=== PATIENT | male | born 2000 | race Caucasian/White ===

== ENCOUNTER 2023-07-22 14:10 | Emergency (ER) | payer BC, SELFPAY ==
[2023-07-22 14:11] VITALS: BP 136/82; PULSE 98; RESP 100; TEMP 35.7; O2SAT 100
[2023-07-22 14:35] LABS: Basophils Percent Auto 0.3 % (0.2-1.2); Eosinophils Absolute Auto 0.1 K/mm3 (0-0.3); Eosinophils Percent Auto 0.9 % (0-4.4); Hematocrit 47.1 % (42.0-52.0); Hemoglobin 15.6 g/dL (14.0-18.0); Immature Granulocyte Absolute 0.04 K/mm3 (0.00-0.031); Immature Granulocyte Percent A 0.4 % (0-0.5); Lymphocytes Percent Auto 27.1 % (18.3-44.2); Mean Corpuscular HGB Conc 33.1 g/dl (32-36); Mean Corpuscular Hemoglobin 30.2 pg (26-34); Mean Corpuscular Volume 91.1 fl (80-100); Mean Platelet Volume 11.2 fl (7.4-10.4); Monocytes Absolute Auto 0.9 K/mm3 (0.1-0.6); Monocytes Percent Auto 8.6 % (2.6-8.5); Neutrophils Absolute Auto 6.7 K/mm3 (1.3-6.7); Neutrophils Percent Auto 62.7 % (45.5-73.1); Platelet Count Result 212 k/mm3 (150-375); Red Blood Count 5.17 M/mm3 (4.6-6.20); Red Cell Distribution Width 12.4 % (11.5-14.5); White Blood Count 10.7 K/mm3 (4.5-10.0)
[2023-07-22 14:45] LABS: Alanine Aminotransferase 87 U/L (6-50); Alkaline Phosphatase 81 U/L (38-126); Anion Gap 15 mmol/L (8-16); Aspartate Amino Transferase 42 U/L (17-59); Bilirubin,Total 0.9 mg/dL (0.2-1.3); Blood Urea Nitrogen 15 mg/dL (9-20); Carbon Dioxide 23 mmol/L (22-30); Chloride 101 mmol/L (98-107); Estimated CRCL calculation 168 ml/min; Estimated Glomerular Filt Rate > 60; Glucose 100 mg/dL (65-110); Potassium 3.8 mmol/L (3.4-5.0); Sodium 139 mmol/L (137-145)
[2023-07-22 14:53] LABS: Prothrombin Time 13.6 Seconds (11.1-14.7)
[2023-07-22 17:08] VITALS: BP 153/92; PULSE 85; RESP 18; O2SAT 99
--- NOTE | 2023-07-22 17:12 | ED.GENADULT ---
HPI - General Adult General Chief complaint: GI Bleed Stated complaint: blood in stools Time Seen by Provider: 07/22/23 17:12 Source: patient Mode of arrival: ambulatory Limitations: no limitations History of Present Illness HPI narrative: This is a 23-year-old otherwise healthy male who presents to the ED with chief complaint of bright red blood per rectum beginning today. Reports that he was at work and he felt some discomfort and itching. He reports there is bright red blood in his underwear where he sat. He reports that when he went to the restroom and white he saw blood on the tissue paper. This has never happened before. It reports a pressure sensation in the area. Denies fevers, chills, abdominal pain, problems with bowel movements or urination. Related Data Allergies Allergy/AdvReac Type Severity Reaction Status Date / Time No Known Allergies Allergy Verified 07/22/23 17:09 Review of Systems Review of Systems: All systems as dictated in HPI Exam Narrative: GENERAL: Well-appearing, well-nourished, and in no acute distress. HEAD: Normocephalic, atraumatic. EYES: PERRLA and EOMI. ENT: Nares clear, no rhinorrhea or epistaxis. Mucous membranes moist. Oropharynx without tonsillar hypertrophy exudate or other lesions. NECK: Supple. No adenopathy or masses. CHEST: No respiratory distress. Clear to auscultation. No wheezes rales or rhonchi HEART: Regular rate and rhythm. No murmur heard. Normal peripheral pulses. ABDOMEN: Soft, nontender, nondistended, normal active bowel sounds. MSK: Normal range of motion. No edema. SKIN: Warm, dry, no rash. NEURO: Alert and oriented x3. No focal deficits. PSYCH: Normal mood and affect. : There is carie blood on the external rectal exam. With close inspection, able to visualize a draining area externally to the gluteal cleft. The drainage is purulent and bloody. The area is tender to palpation with no fluctuance. No external hemorrhoids or anal fissure noted. Course Vital Signs Vital signs: Vital Signs Temperature 96.3 F L 07/22/23 14:11 Pulse Rate 98 07/22/23 14:11 Respiratory Rate 100 H 07/22/23 14:11 Blood Pressure 136/82 07/22/23 14:11 Pulse Oximetry 100 07/22/23 14:11 Oxygen Delivery Room Air 07/22/23 14:11 Temperature 96.3 F L 07/22/23 14:11 Pulse Rate 85 07/22/23 17:08 Respiratory Rate 18 07/22/23 17:08 Blood Pressure 153/92 H 07/22/23 17:08 Pulse Oximetry 99 07/22/23 17:08 Oxygen Delivery Room Air 07/22/23 14:11 Medical Decision Making MDM Narrative Medical decision making narrative: This is a 23-year-old male who presents to the ED with chief complaint of rectal bleeding and pressure. Vitals are normal. Physical exam overall unremarkable. However rectal exam does reveal evidence of carie blood. There is a opening in the skin at the gluteal cleft well superior to the perianal area. It is draining a purulent and bloody material. No lesions able to be visualized elsewhere. Symptoms in presentation were consistent with abscess. The area is already draining so do not feel that any further intervention in needs to take place today. No indications for further imaging. Prescription for Keflex was given. Supportive measures for home discussed. PCP follow-up given. We discussed that if this problem should continue then they may need to see a general surgeon. Pt will be discharged in stable condition. Return precautions given and supportive measures discussed. Pt is understanding and agreeable with plan for discharge and follow-up with PCP. Vital Signs Vital Signs: Vital Signs Temperature 96.3 F L 07/22/23 14:11 Pulse Rate 98 07/22/23 14:11 Respiratory Rate 100 H 07/22/23 14:11 Blood Pressure 136/82 07/22/23 14:11 Pulse Oximetry 100 07/22/23 14:11 Oxygen Delivery Room Air 07/22/23 14:11 Temperature 96.3 F L 07/22/23 14:11 Pulse Rate 85 07/22/23 17:08 Respiratory Rate 1
--- NOTE | 2023-07-22 17:19 | PC.NURSE ---
Addendum entered by Courtney Diamond RN 07/22/23 17:22: Pt found in another room. Original Note: Pt called for room at 1717 and visual assessment of waiting room done. Pt not seen or answered.
== END 2023-07-22 17:58 | disposition home or self-care (01) ==
LOC: ANHED 17:42
PROVIDERS: Emergency Medicine; Emergency Provider Physician Assistant
DX: L02.31 Cutaneous abscess of buttock (principal)
CPT/HCPCS: 36415; 80053; 85025; 85610; 85730; 86850; 86900; 86901; 99283